=== PATIENT | female | born 1985 | race Hispanic/Latino ===

== ENCOUNTER 2018-08-24 05:30 | Day surgery (SDC) | payer MEDICAID ==
[2018-08-23 16:21] LABS: BASOPHILS % (AUTO) 0.4 % (0.0-5.0); EOSINOPHILS % (AUTO) 1.4 % (0.0-8.0); HEMATOCRIT 35.7 % (36-48); LYMPHOCYTES % (AUTO) 25.5 % (21.0-51.0); MEAN CORPUSCULAR HEMOGLOBIN 29.5 pg (27.0-33.0); MEAN CORPUSCULAR HGB CONC 33.5 g/dL (32.0-36.0); MONOCYTES % (AUTO) 5.4 % (3.0-13.0); NEUTROPHILS % (AUTO) 67.3 % (40.0-77.0); NUCLEATED RED BLOOD CELLS 0.1 % (0.0-0.19); PLATELET COUNT (AUTO) 249 K/uL (130-400); RED BLOOD CELL COUNT(AUTO) 4.06 MIL/uL (4.00-5.50); RED CELL DISTRIBUTION WIDTH 13.5 % (11.0-15.5); WHITE BLOOD COUNT (AUTO) 5.2 K/uL (4.8-10.8)
[2018-08-23 16:50] VITALS: BP 126/78
[~2018-08-24] VITALS: Ht 154.9 cm; Wt 62.4 kg
[~2018-08-24 05:30] MED LIST: TYL3 PO
[2018-08-24] MEDS ORDERED: LACTATED RINGERS 1000ML 1,000 ML IV ONE (05:35)
[2018-08-24 05:45] VITALS: BP 130/85
--- NOTE | 2018-08-24 06:03 | NUR ---
VALUABLES: SENT TO SECURITY, SEE ATTACHED SHEET.
[2018-08-24] MEDS ORDERED: LIDOCAINE PF 2% 5ML ABBOJECT ONE (06:39)
[2018-08-24] MEDS ORDERED: DEXAMETHASONE SOD PHOSPHATE 10MG/ML 1ML VIAL ONE (06:39)
[2018-08-24] MEDS ORDERED: MIDAZOLAM HCL 1 MG/ML 2ML VIAL ONE (06:40)
[2018-08-24] MEDS ORDERED: FENTANYL CITRATE PF 50 MCG/1 ML 2ML VIAL ONE (06:40)
[2018-08-24] MEDS ORDERED: ONDANSETRON HCL 4 MG/2 ML VIAL ONE (06:40)
[2018-08-24] MEDS ORDERED: PROPOFOL 10 MG/ML 20ML VIAL IV ONE ×2 (06:40→06:47)
[2018-08-24] MEDS ORDERED: OXYTOCIN 10 USP UNITS/ML ONE (06:49)
[2018-08-24] MEDS ORDERED: LACTATED RINGERS 1000ML 1,000 ML IV SCH (08:00)
[2018-08-24 08:15] VITALS: BP 142/92
--- NOTE | 2018-08-24 08:15 | NUR ---
RECEIVED IN BED AWAKE ,WANTING TO GO TO BR,,,,SCANT VAG BLEEDING , WILL ASSIST TO BR.
--- NOTE | 2018-08-24 08:25 | NUR ---
ASSISTED TO BR ,DOES WELL VOIDS 300 ML ,BACK TO BED ,AWAITING FOR MOM Addendum: 08/24/18 at 0928 by NETTA CHAU LVN LVN AFTER VOIDING ,STATES NO CRAMPING,FEELING FINE
[2018-08-24 08:30] VITALS: BP 140/95
[2018-08-24 08:45] VITALS: BP 138/91
--- NOTE | 2018-08-24 08:50 | NUR ---
ASSISTED TO BR VOIDS CLEAR YELLOW URINE,WITH SMALL AMT OF VAG BLEEDING,
[2018-08-24 09:00] VITALS: BP 134/93
--- NOTE | 2018-08-24 09:10 | NUR ---
INSTRUCTIONS GIVEN TO MOM AND PT ,VERBALIZE UNDERSTANDING,,,
== END 2018-08-24 09:15 | disposition home or self-care (01) ==
LOC: DAH 05:30
PROVIDERS: ATTEND Obstetrics & Gynecology
DX: O03.4 Incomplete spontaneous abortion without complication (principal)
CPT/HCPCS: 36415; 59812; 85025; 86850; 86900; 86901; 88305; A4606; J1100; J2001; J2250; J2405; J2590; J2704 ×2; J3010; J7120 ×2

== ENCOUNTER 2020-10-22 22:12 | Inpatient (IN) | payer MEDICAID, OTHER ==
[2020-10-22] MEDS ORDERED: TETANUS/DIPHTHERIA TOXOID [ADULT] 0.5 ML VIAL IM ONE (23:21)
[2020-10-22] MEDS ORDERED: CEFAZOLIN SODIUM 1 GM VIAL ONE (23:53)
[2020-10-22] MEDS ORDERED: KETOROLAC 30MG VIAL (30MG/ML) ONE (23:53)
[2020-10-22] MEDS ORDERED: 0.9% NACL 500ML IV.SOLN 500 ML IV ONE (23:54)
== END 2020-10-23 03:55 | disposition left against medical advice (07) | DRG 605 ==
LOC: EDH 22:12 → EDHIP 22:13 → 3AH 10-23 03:46
PROVIDERS: ADMIT Surgery Plastic and Reconstructive Surgery; ATTEND Surgery Plastic and Reconstructive Surgery
PROC: 3E0234Z Introduction of Serum, Toxoid and Vaccine into Muscle, Percutaneous Approach (ICD-10-PCS; principal; 2020-10-22)
DX: S61.212A Laceration without foreign body of right middle finger without damage to nail, initial encounter (principal); W26.0XXA Contact with knife, initial encounter; Z53.29 Procedure and treatment not carried out because of patient's decision for other reasons; Z20.822 Contact with and (suspected) exposure to COVID-19; Y93.89 Activity, other specified; Y92.89 Other specified places as the place of occurrence of the external cause; Y99.8 Other external cause status; Z23 Encounter for immunization
CPT/HCPCS: 73130; 81025; 87426; 90714; G0378; J0690; J1885; J7040; U0003